=== PATIENT | female | born 2005 | race Caucasian/White ===

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

== ENCOUNTER 2023-03-05 14:55 | Outpatient (CLI) | payer BC, SELFPAY ==
[2023-03-05 20:18] LABS: Chlamydia DNA Amplified* NOT DETECTED (No Detected); GC DNA Amplified* NOT DETECTED (No Detected)
== END 2023-03-05 14:56 | disposition home or self-care (01) ==
LOC: NFLDREF 14:57
PROVIDERS: PCP Physician Assistant Medical; Visit Provider Physician Assistant
DX: Z11.3 Encounter for screening for infections with a predominantly sexual mode of transmission (principal)
CPT/HCPCS: 87491; 87591

== ENCOUNTER 2023-07-27 14:42 | Outpatient (CLI) | payer BC, SELFPAY ==
--- NOTE | 2023-07-27 15:00 | CRLHL7_ITS ---
For Patients: As a result of the Century Cures Act, medical imaging exams and procedure reports are released immediately into your electronic medical record. You may view this report before your referring provider. If you have questions, please contact your health care provider. INDICATION: Irregular bleeding, IUD in place. TECHNIQUE: Transabdominal and transvaginal pelvic ultrasound. FINDINGS: Uterus is anteverted and measures 6.8 x 2.6 x 3.5 cm. Normal endometrial stripe thickness of 3 mm. IUD appears appropriately positioned within the uterus. Both ovaries appear normal. No adnexal mass or free fluid. IMPRESSION: 1. IUD appears appropriately positioned. 2. Normal pelvic ultrasound. Dictated by Peterson Monique MD @ 07/28/2023 12:47:52 PM (Electronically Signed)
== END 2023-07-27 14:43 | disposition home or self-care (01) ==
LOC: US 14:43
PROVIDERS: PCP Physician Assistant Medical; Visit Provider Physician Assistant
DX: N92.6 Irregular menstruation, unspecified (principal)
CPT/HCPCS: 76830; 76856

== ENCOUNTER 2023-10-15 07:41 | Outpatient (CLI) | payer BC, SELFPAY | END 2023-10-15 07:42 | disposition home or self-care (01) | LOC: FRMREF 07:43 | PROVIDERS: PCP Physician Assistant Medical; Visit Provider Dermatology | DX: Z79.899 Other long term (current) drug therapy (principal) | CPT/HCPCS: 80076 ==